=== PATIENT | male | born 1995 | race Caucasian/White ===

== ENCOUNTER 2021-01-07 10:48 | Emergency (ER) | payer OTHER ==
[~2021-01-07] VITALS: Ht 180.3 cm; Wt 74.1 kg
[2021-01-07] MEDS ORDERED: CEPH250T PO (11:26)
[2021-01-07 11:27] VITALS: BP 122/60
== END 2021-01-07 11:31 | disposition home or self-care (01) ==
LOC: ER 10:49
DX: S60.031A Contusion of right middle finger without damage to nail, initial encounter (principal); Z79.2 Long term (current) use of antibiotics; W26.9XXA Contact with unspecified sharp object(s), initial encounter; Y93.89 Activity, other specified; Y92.89 Other specified places as the place of occurrence of the external cause; Y99.8 Other external cause status
CPT/HCPCS: 73140; 99283